=== PATIENT | female | born 1980 | race American Indian/Alaskan Native ===

== ENCOUNTER 2019-08-17 09:24 | Day surgery (SDC) | payer BC ==
[2019-08-17] MEDS ORDERED: ONDANSETRON 4 MG/2 ML INJ IV PRN (10:38)
[2019-08-17] MEDS ORDERED: fentaNYL 100 MCG/2 ML INJ IV PRN (10:38)
--- NOTE | 2019-08-17 10:40 | Anesthesia Day of Surgery ---
Anesthesia Day of Surgery - Day of Surgery Patient Examined: Yes Patient H&P Reviewed: Yes Patient is NPO: Yes
[2019-08-17] MEDS ORDERED: MAGNESIUM OXIDE 400 MG TAB PO ONE (10:43)
[2019-08-17] MEDS ORDERED: ACETAMINOPHEN 500 MG TAB PO ONE (10:43)
--- NOTE | 2019-08-17 10:43 | Anesthesia Consultation ---
Anesthesia Consult and Med Hx Date of service: 08/17/19 - Airway Anesthetic Teeth Evaluation: Good ROM Head & Neck: Adequate Mental/Hyoid Distance: Adequate Mallampati Class: Class II - Pre-Operative Health Status ASA Pre-Surgery Classification: ASA2 Proposed Anesthetic Plan: General - Pulmonary Hx Smoking: No Hx Sleep Apnea: No (SHAILESH PRE SCREEN LOW RISK.) - Cardiovascular System Hx Hypertension: No - Central Nervous System Hx Back Pain: Yes (FROM STONE) - Endocrine Hx Non-Insulin Dependent Diabetes: Yes - Hematic Hx Sickle Cell Disease: No (SC TRAIT ONLY) - Other Systems Hx Cancer: No
[2019-08-17] MEDS ORDERED: LACTATED RINGERS 1,000 ML IV SCH (11:00)
[2019-08-17] MEDS ORDERED: MIDAZOLAM 2 MG/2 ML INJ IV NR (11:00)
[2019-08-17] MEDS ORDERED: PROPOFOL 200 MG/20 ML VIAL IV ONE (11:19)
[2019-08-17] MEDS ORDERED: LIDOCAINE MPF (2%) 20 MG/1 ML VIAL 5 ML ONE (11:19)
[2019-08-17] MEDS ORDERED: fentaNYL 100 MCG/2 ML INJ ONE (11:19)
[2019-08-17] MEDS ORDERED: ONDANSETRON 4 MG/2 ML INJ ONE (11:20)
[2019-08-17] MEDS ORDERED: ceFAZolin/STERILE WATER 2 GM/20 ML SYRINGE IV NR (12:00)
--- NOTE | 2019-08-17 12:27 | Short Stay Summary ---
Short Stay Documentation Date of service: 08/17/19 - History H&P: obtained from office - Allergies and Medications Current Medications: Allergies No Known Allergies Allergy (Verified 08/14/19 16:11) Home Medications Medication Instructions Recorded Confirmed Last Taken Type Dulaglutide [Trulicity] 1.5 mg SQ QWEEK 08/14/19 08/17/19 08/13/19 09:00 History Empagliflozin [Jardiance] 25 mg PO DAILY 08/14/19 08/17/19 08/14/19 09:00 History Active Medications Cefazolin Sodium (Ancef/Sterile Water 2 Gm/20 Ml) 2 gm IV PREOP NR Stop: 08/17/19 23:59 Fentanyl (Sublimaze) 50 mcg IV Q5MIN PRN PRN Reason: Pain , Severe (7-10) Stop: 08/17/19 23:59 Lactated Ringer's (Lactated Ringers) 1,000 mls @ 125 mls/hr IV DIRECT MICAHEL Last Admin: 08/17/19 11:25 Dose: 125 mls/hr Documented by: Midazolam HCl (Versed) 2 mg IV PREOP NR Stop: 08/17/19 23:59 Last Admin: 08/17/19 11:25 Dose: 2 mg Documented by: Ondansetron HCl (Zofran) 4 mg IV ONCE PRN PRN Reason: Nausea And Vomiting - Brief post op/procedure progress note Date of procedure: 08/17/19 Pre-op diagnosis: rt renal stone Post-op diagnosis: same Procedure: ESWL Anesthesia: GETA Surgeon: GIANCARLO HAIR Pathology: none Condition: stable - Hospital course Hospital course: abhay leung,post op info on chart - Disposition Condition at discharge: Stable Disposition: DC-01 TO HOME OR SELFCARE Short Stay Discharge Plan Follow up with: STEVE MORALES PA [Primary Care Provider] - 7 Days
--- NOTE | 2019-08-17 12:58 | Operative Report ---
PREOPERATIVE DIAGNOSIS: Right renal stone, 8 mm. POSTOPERATIVE DIAGNOSIS: Right renal stone, 8 mm. PROCEDURE: Extracorporal shock wave lithotripsy. SURGEON: Dakotah Flower MD ANESTHESIA: General. ESTIMATED BLOOD LOSS: Minimal. FLUIDS: Crystalloid. COMPLICATIONS: No complications. INDICATIONS: This patient is a 39-year-old female seen by Dr. Amos as well as Dr. Machuca for evaluation. CT of abdomen and pelvis and KUB revealed a 7 or 8 mm stone on the right, 4 mm stone on the left. Her pain has been on the right side. We discussed options. She agreed to proceed with surgical intervention. DESCRIPTION OF PROCEDURE: The patient was taken to the operative suite, placed in a supine position. After adequate general anesthesia, her stone was localized in 2 planes using fluoroscopy. Extracorporal shock wave lithotripsy was administered in maximum kV of 8 and 2500 shocks, 5-minute renal pause after 200 shocks was performed. Adequate fragmentation could be appreciated. She tolerated the procedure well. She was extubated and taken to recovery room. She will go home on [place], [facility] and strain her urine. JOB# [id number] C/NTS
[2019-08-17 13:45] VITALS: BP 105/67
[2019-08-17] MEDS ORDERED: HYDROcodone/ACETAMINOPHEN 5-325 MG TAB PO PRN (13:58)
--- NOTE | 2019-08-17 22:27 | Post Anesthesia Evaluation ---
- Post Anesthesia Evaluation Patient Participated: Yes Airway Patent: Yes Stable Respiratory Function: Yes Nausea/Vomiting: No Temp > 96.8F: Yes Pain Manageable: Yes Adequeate Hydration: Yes Anesthesia Complications: No Block Receding Appropriately: Not Applicable Patient on Ventilator: No
== END 2019-08-17 14:40 | disposition home or self-care (01) ==
LOC: OR 09:24
PROVIDERS: ATTEND Urology
DX: N20.0 Calculus of kidney (principal); E11.9 Type 2 diabetes mellitus without complications; Z79.899 Other long term (current) drug therapy; Z98.49 Cataract extraction status, unspecified eye; Z90.49 Acquired absence of other specified parts of digestive tract; Z98.51 Tubal ligation status; Z98.890 Other specified postprocedural states
CPT/HCPCS: 50590; 81025; 82962; J0690; J2250; J2405; J2704; J3010; J7120